=== PATIENT | female | born 1930 | race Caucasian/White ===

== ENCOUNTER → 2017-02-28 | Outpatient (CLI) | payer MEDICARE, OTHER ==
[~2017-02-28] MED LIST: FLEXERIL PO; LORTAB 5/500 TA1 TA2 PO
--- NOTE | ~2017-02-28 | CT71 ---
[facility] RADIOLOGY TEXT RESULTS PATIENT: RICHARD JOHNSON LOCATION: [facility] : 32 UNIT #: [id number] AGE: [address]: Howie Bynum MD SEX: F ORDER DR: [id number] [place] [id number] O MR#: [id number] Acc #: [id number] NAME: RICHARD JOHNSON : 1930 SEX: F STUDY DATE/TIME: 02/28/2017 11:50 UNIT: [facility] ROOM: STUDY DESCRIPTION: CT Head Wo Contrast Attending Physician: Howie Bynum M.D. Referring Physician: Howie Bynum M.D. Ordering Physician: Howie Bynum M.D. Primary Care Physician: Howie Bynum M.D. MEDICAL IMAGING REPORT This report is preliminary unless electronic signature is present. EXAM CT brain without contrast media HISTORY Dizziness for 2 weeks. TECHNIQUE Transaxial imaging of the brain was performed without contrast media. The CT exam was performed with one or more of the following radiation dose reduction techniques: automatic exposure control, adjustment of mA and/or kV according to patient size, and iterative reconstruction. FINDINGS There is generalized prominence of the ventricles and CSF-containing spaces. No intra or extraaxial mass lesions, fluid collections or mass effect are seen. No focal areas of low attenuation or evidence of acute hemorrhage. The posterior fossa is unremarkable. 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 The internal auditory canals appear symmetric. Mastoid air cells and middle ear cavities are normally aerated. No evidence of significant sinus disease. CONCLUSION 1. Atrophy, age appropriate. 2. Atherosclerotic calcifications in the carotid siphons. 3. CT of the brain is otherwise negative. Dictated by... Dao Kolb M.D. [facility] RADIOLOGY TEXT RESULTS PATIENT: RICHARD JOHNSON LOCATION: [facility] : 32 UNIT #: [id number] AGE: [address]: Howie Bynum MD SEX: F ORDER DR: THIS IS AN ELECTRONICALLY VERIFIED REPORT Dao Kolb M.D. at 02/28/2017 5:04 PM Zay TD: 02/28/2017 13:11 JOB #: [id number] MEDICAL IMAGING REPORT Page 1 of 1
[2017-02-28 11:25] LABS: POC - CREATININE 1.08 mg/dL (0.44-1.03)
== END | disposition home or self-care (01) ==
LOC: SCT 11:10
PROVIDERS: Internal Medicine
DX: R42 Dizziness and giddiness (principal); G31.9 Degenerative disease of nervous system, unspecified; I65.29 Occlusion and stenosis of unspecified carotid artery
CPT/HCPCS: 70450; 82565